=== PATIENT | female | born 1985 | race Caucasian/White ===

== ENCOUNTER 2018-04-03 11:45 | Emergency (ER) | payer BC ==
[~2018-04-03] VITALS: Ht 170.2 cm; Wt 68.0 kg
[2018-04-03 12:02] VITALS: BP 124/68
== END 2018-04-03 14:00 | disposition home or self-care (01) ==
LOC: ER 11:45
DX: S39.012A Strain of muscle, fascia and tendon of lower back, initial encounter (principal); S86.812A Strain of other muscle(s) and tendon(s) at lower leg level, left leg, initial encounter; E07.89 Other specified disorders of thyroid; V43.52XA Car driver injured in collision with other type car in traffic accident, initial encounter; Y93.89 Activity, other specified; Y99.8 Other external cause status; Y92.410 Unspecified street and highway as the place of occurrence of the external cause
CPT/HCPCS: 72070; 72100; 73560